=== PATIENT | female | born 1995 | race Caucasian/White ===

== ENCOUNTER 2024-07-20 14:55 | Outpatient (REF) | payer BC, SELFPAY | END 2024-07-20 14:56 | disposition home or self-care (01) | LOC: LBN 14:55 | PROVIDERS: PCP Physician Assistant; Visit Provider Physician Assistant | DX: J02.9 Acute pharyngitis, unspecified (principal) | CPT/HCPCS: 87070 ==

== ENCOUNTER 2025-10-02 00:51 | Outpatient (CLI) | payer OTHER, SELFPAY ==
[2025-10-02 14:32] LABS: Abs Immature Grans 0.01 10^3/uL (0.0-0.06); HCT 42.4 % (36.0-46.0); HGB 13.9 g/dL (11.2-15.7); Immature Grans % 0.2 %; MCH 30.4 pg (27.0-33.0); MCHC 32.8 % (32.0-36.0); MCV 93 fL (80-95); MPV 9.7 fL (8.0-11.0); Platelet Count 286 10^3/uL (130-400); RBC 4.57 10^6/uL (3.93-5.22); RDW 11.8 % (11.7-14.6); RDW-SD 40.4 fL; WBC 6.23 10^3/uL (4.4-10.8)
[2025-10-02 15:14] LABS: TSH (W/Ref FT4) 3.21 uIU/mL (0.55-4.78); Vitamin D 25 Total 49 ng/mL (30-100)
[2025-10-02 15:15] LABS: Vitamin B12 492 pg/mL (211-911)
[2025-10-02 15:30] LABS: ALT 19 U/L (10-49); AST 16 U/L (<34); Albumin 4.5 g/dL (3.4-5.0); Alkaline Phosphatase 63 U/L (46-116); Anion Gap 7.6 mmol/L (3-11); BUN 10 mg/dL (9-23); Bilirubin, Total 0.60 mg/dL (0.2-1.2); CO2 28.4 mmol/L (20.0-31.0); Calcium 9.2 mg/dL (8.3-10.6); Chloride 105 mmol/L (98-107); Cholesterol 179 mg/dL (<200); Glucose 84 mg/dL (74-106); HDL Cholesterol 48 mg/dL (>40); Potassium 4.0 mmol/L (3.5-5.1); Sodium 141 mmol/L (136-145); Total Protein 7.1 g/dL (5.7-8.2)
[2025-10-02 15:59] LABS: Hemoglobin A1C 5.0 % (<5.7)
[2025-10-03 11:23] LABS: HIV-1/2 Ag & Ab Screen Negative (Negative)
[2025-10-03 11:24] LABS: Hepatitis C Ab w Rflx HCV PCR Negative (Negative)
[2025-10-03 12:16] LABS: HBs Antibody, Quant 10.0 mIU/mL (See Note); Hepatitis B Surface Antigen Negative (Negative)
== END 2025-10-02 00:52 | disposition home or self-care (01) ==
LOC: LOS 00:53
PROVIDERS: PCP Nurse Practitioner Family; Visit Provider Nurse Practitioner Family
DX: Z00.00 Encounter for general adult medical examination without abnormal findings (principal); Z11.59 Encounter for screening for other viral diseases; Z11.4 Encounter for screening for human immunodeficiency virus [HIV]
CPT/HCPCS: 36415; 80053; 80061; 82306; 86704; 86706; 86803; 87340; 87389; 82607; 83036; 84443; 85025